=== PATIENT | male | born 1975 | race Caucasian/White ===

== ENCOUNTER 2017-05-11 14:47 | Emergency (ER) | payer OTHER ==
[~2017-05-11] VITALS: Ht 190.5 cm; Wt 95.0 kg
[2017-05-11 14:57] VITALS: BP 132/72
[2017-05-11] MEDS ORDERED: LIDOCAINE 1%, 20ML INFIL ONE (15:30)
[2017-05-11] MEDS ORDERED: LIDOCAINE 1%, 20ML ONE (15:46)
[2017-05-11] MEDS ORDERED: LIDOCAINE 1%, 20ML SQ ONE (16:00)
== END 2017-05-11 17:13 | disposition home or self-care (01) ==
LOC: ED 16:55
DX: S61.411A Laceration without foreign body of right hand, initial encounter (principal); W26.8XXA Contact with other sharp object(s), not elsewhere classified, initial encounter; Y93.89 Activity, other specified; Y92.89 Other specified places as the place of occurrence of the external cause; Y99.0 Civilian activity done for income or pay
CPT/HCPCS: 12001; 73130; 99284; J3490